=== PATIENT | male | born 1950 | race Caucasian/White ===

== ENCOUNTER → 2020-07-22 13:52 | Outpatient (BNVA) | payer MEDICARE, SELFPAY | PROVIDERS: PCP Internal Medicine; Visit Provider Urology | CPT/HCPCS: 99202 ==

== ENCOUNTER → 2020-08-27 08:59 | Outpatient (BNVA) | payer MEDICARE, SELFPAY | PROVIDERS: PCP Internal Medicine; Visit Provider Urology | DX: Z13.89 Encounter for screening for other disorder (principal) | CPT/HCPCS: 99212 ==

== ENCOUNTER → 2021-03-01 09:23 | Outpatient (BNVA) | payer MEDICARE, SELFPAY | PROVIDERS: PCP Internal Medicine; Visit Provider Urology | DX: N40.1 Benign prostatic hyperplasia with lower urinary tract symptoms (principal); N13.8 Other obstructive and reflux uropathy; C61 Malignant neoplasm of prostate | CPT/HCPCS: Q3014 ==

== ENCOUNTER → 2021-07-01 08:25 | Outpatient (BNVA) | payer MEDICARE, SELFPAY | PROVIDERS: PCP Internal Medicine; Visit Provider Urology | DX: N40.1 Benign prostatic hyperplasia with lower urinary tract symptoms (principal); N13.8 Other obstructive and reflux uropathy; C61 Malignant neoplasm of prostate | CPT/HCPCS: Q3014 ==

== ENCOUNTER → 2021-11-02 08:25 | Outpatient (BNVA) | payer MEDICARE, SELFPAY | PROVIDERS: PCP Internal Medicine; Visit Provider Urology | DX: C61 Malignant neoplasm of prostate (principal); N40.0 Benign prostatic hyperplasia without lower urinary tract symptoms; Z79.899 Other long term (current) drug therapy | CPT/HCPCS: Q3014 ==

== ENCOUNTER → 2022-02-01 10:41 | Outpatient (BNVA) | payer MEDICARE, SELFPAY | PROVIDERS: PCP Internal Medicine; Visit Provider Urology | DX: C61 Malignant neoplasm of prostate (principal); N40.1 Benign prostatic hyperplasia with lower urinary tract symptoms; N13.8 Other obstructive and reflux uropathy | CPT/HCPCS: Q3014 ==

== ENCOUNTER → 2022-08-01 13:13 | Outpatient (BNVA) | payer MEDICARE, SELFPAY | PROVIDERS: PCP Internal Medicine; Visit Provider Urology | DX: C61 Malignant neoplasm of prostate (principal); N40.1 Benign prostatic hyperplasia with lower urinary tract symptoms; N13.8 Other obstructive and reflux uropathy; I10 Essential (primary) hypertension; Z79.899 Other long term (current) drug therapy | CPT/HCPCS: Q3014 ==

== ENCOUNTER 2023-03-06 10:06 | Outpatient (AMB) | payer MEDICARE, SELFPAY ==
--- NOTE | 2023-03-06 10:08 | MHC.OFFVIS ---
Intake Intake Visit Reasons: 4m/PSA(set) Intake Note: Patient is Present for Follow Up PSA Urology Medication: Finasteride Antibiotic Allergies: None Blood Thinners: None [facility]acy: [facility] Allergies lisinopril Allergy (Intermediate, Verified 03/06/23 10:11) coughing HPI HPI Comments History of Present Illness Details Balaji is a pleasant male. He is a patient of Dr. Hadley. He is seen for the following urologic issues - lower urinary tract symptom - prostate cancer PSA staying stable Happy to continue on finasteride 5 mg daily Prior MRI from 2020 did not suggest high volume of disease Prostate cancer low volume, low grade initial diagnosis 2013 Prostate cancer initially diagnosed 2013 Initial prostate biopsy 06/18 core [place] 3 + 3 - 40%, 5% Imaging - 08/25 MRI 2 lesion PI-RADS 3 lesions - 0.6 and 0.8 cm neither reached clinically significant prostate cancer, intact boundary, size 80 g PSA - 06/27 12, 02/24 6.5, 06/28 6.9, 10/26 13.7, 01/26 8.4, 07/27 9.9, 02/26 8.7 14% Therapeutic plan - continue finasteride - repeat 4m PFSH Medical History HTN (hypertension) Hyperlipidemia Eczema Review of Systems Const Denies chills and Denies fever(s) Card Reports no additional complaints and Denies syncope Resp Denies cough GI Denies abdominal pain and Denies heartburn Reports as per HPI and Denies change in libido Neuro Denies syncope Psych Denies change in libido Endo Denies change in libido Physical Exam Const General: cooperative, healthy appearing, comfortable and no acute distress Orientation/consciousness: patient oriented x3 HEENT Face and sinus: Yes normal facial exam Mouth: moist mucous membranes Neck Neck: Yes normal visual inspection, Yes full ROM and Yes trachea midline Chest Chest palpation & inspection: normal inspection of the chest Resp Effort & Inspection: normal respiratory effort, able to speak in complete sentences and no respiratory distress GI Inspection: Yes normal to inspection Back/Spine/Pelvis Cervical Spine: normal cervical lordosis Thoracic/Lumbar Spine: thoracic and lumbar spine normal to inspection Skin General skin exam: no rashes or lesions noted Neuro General: patient oriented x3, gait normal, tone normal and moves all extremities Extrem General: Yes normal to inspection and Yes capillary refill normal Assessment & Plan Assessment & Plan (1) Prostate cancer: Code(s): C61 - Malignant neoplasm of prostate (2) BPH w urinary obs/LUTS: Code(s): N40.1 - Benign prostatic hyperplasia with lower urinary tract symptoms; N13.8 - Other obstructive and reflux uropathy Plan Four month follow-up Patient Instructions: Imaging studies, laboratory and physical exam results were discussed and reviewed in detail. No major barriers to patient understanding were identified. An opportunity to ask questions regarding the treatment plan was provided. All questions were answered. The patient expressed understanding and agreement with the above treatment plan. The patient is aware they should contact our office by phone for worsening of their current condition or the appearance of new urologic symptoms. Compliance is encouraged with any medications and followup testing that is ordered. It is a privilege to participate in the urologic care of your patient. If you have any questions or concerns regarding treatment for the above conditions, or other urologic issues, please do not hesitate to contact me. The office telephone contact is [phone]. This note is constructed using voice recognition software. While every effort has been made to ensure accuracy manager applied errors may have been included. Yours sincerely, Dr Angelo Cuellar MD, [facility] - Urology Providers of Expert, Compassionate Care for the Genitourinary System Coding Level of Care Code Est Pt Level 3 (06960) Diagnoses Prostate cancer C61 BPH w urinary obs/LUTS N40.1; N13.8
== END 2023-03-06 11:00 | disposition home or self-care (01) ==
PROVIDERS: Visit Provider Urology
DX: C61 Malignant neoplasm of prostate (principal); N40.1 Benign prostatic hyperplasia with lower urinary tract symptoms; N13.8 Other obstructive and reflux uropathy
CPT/HCPCS: 99213

== ENCOUNTER → 2023-03-06 10:06 | Outpatient (BNVA) | payer MEDICARE, SELFPAY | PROVIDERS: Visit Provider Urology | DX: N40.1 Benign prostatic hyperplasia with lower urinary tract symptoms (principal); N13.8 Other obstructive and reflux uropathy; C61 Malignant neoplasm of prostate | CPT/HCPCS: 99212 ==

== ENCOUNTER 2023-07-04 09:20 | Outpatient (AMB) | payer MEDICARE, SELFPAY ==
--- NOTE | 2023-07-04 09:22 | A.OFFVIS_ITS ---
Intake Intake Visit Reasons: 4M PSA(set)Confirmed Intake Note: Patient is Present for Telephone Follow Up PSA Urology Med: Finasteride, Antibiotic Allergy:None Blood Thinner:None Allergies lisinopril Allergy (Intermediate, Verified 07/04/23 09:22) coughing Medication List - Last Reconciled 07/04/23 by Angelo Cuellar MD atorvastatin 10 mg PO DAILY finasteride 5 mg PO DAILY 90 days losartan 100 mg PO DAILY HPI HPI Comments History of Present Illness Details Balaji is a pleasant male. He is a patient of Dr. Hadley. He is seen for the following urologic issues - lower urinary tract symptom - prostate cancer Telemedicine Evaluation 15 min Consultation Doximity Lalita Video attempted PSA slight fall 6.4 Happy to continue on finasteride 5 mg daily Prior MRI from 2020 did not suggest high volume of disease Prostate cancer low volume, low grade initial diagnosis 2013 Prostate cancer initially diagnosed 2013 Initial prostate biopsy 06/18 core [place] 3 + 3 - 40%, 5% Imaging - 08/25 MRI 2 lesion PI-RADS 3 lesions - 0.6 and 0.8 cm neither reached clinically significant prostate cancer, intact boundary, size 80 g PSA - 06/27 12, 02/24 6.5, 06/28 6.9, 10/26 13. 7, 01/26 8.4, 07/27 9.9, 02/26 8.7 14%, 06/29 6.4 Therapeutic plan - continue finasteride - repeat 4m REPLACED BY [facility] Medical History HTN (hypertension) Hyperlipidemia Eczema Review of Systems Const All systems reviewed & are unremarkable except as noted in HPI and below Reports no additional complaints Resp Reports no additional complaints GI Reports no additional complaints Reports as per HPI Musc Reports no additional complaints Physical Exam Telemedicine evaluation Appropriate responses Regular breathing rate and rhythm HEENT Head: Yes normal to inspection Ears: hearing grossly normal bilaterally Eyes General: appearance normal, both eyes and all related structures Neck Neck: Yes normal visual inspection Chest Chest palpation & inspection: normal inspection of the chest Resp Effort & Inspection: normal respiratory effort and able to speak in complete sentences Assessment & Plan Assessment & Plan (1) Prostate cancer: Code(s): C61 - Malignant neoplasm of prostate (2) BPH w urinary obs/LUTS: Code(s): N40.1 - Benign prostatic hyperplasia with lower urinary tract symptoms; N13.8 - Other obstructive and reflux uropathy Plan Four month follow-up PSA Orders: Orders Prostate Specific Antigen 06/19/23 C61 - Malignant neoplasm of prostate PSA,Total (Free>4and<10) 4 Months C61 - Malignant neoplasm of prostate Medications: Refilled finasteride 5 mg PO DAILY 90 days 90 tabs 1RF C61 - Malignant neoplasm of prostate, N40.1 - Benign prostatic hyperplasia with lower urinary tract symptoms Patient Instructions: Imaging studies, laboratory and physical exam results were discussed and reviewed in detail. No major barriers to patient understanding were identified. An opportunity to ask questions regarding the treatment plan was provided. All questions were answered. The patient expressed understanding and agreement with the above treatment plan. The patient is aware they should contact our office by phone for worsening of their current condition or the appearance of new urologic symptoms. Compliance is encouraged with any medications and followup testing that is ordered. It is a privilege to participate in the urologic care of your patient. If you have any questions or concerns regarding treatment for the above conditions, or other urologic issues, please do not hesitate to contact me. The office telephone contact is [phone]. This note is constructed using voice recognition software. While every effort has been made to ensure accuracy search optimization analyst errors may have been included. Yours sincerely, Dr Angelo Cuellar MD, [facility] - Urology Providers of Expert, Compassionate Care for the Genitourinary System Telehealth Telehealth Location of provider rendering services: practice address Location of patient: address on file Patient Identification confirmed using: Name, : Yes Telehealth method: video Patient verbally consented to treatment: Yes Patient verbally consented to billing insurance company: Yes Patient informed of any privacy concerns related to visit: Yes Coding Level of Care Code Tele Est Pt Level 3 (18301) Diagnoses Prostate cancer C61 BPH w urinary obs/LUTS N40.1; N13.8
== END 2023-07-04 09:56 | disposition home or self-care (01) ==
LOC: HO.HUSH 09:21
PROVIDERS: PCP Internal Medicine; Visit Provider Urology
DX: C61 Malignant neoplasm of prostate (principal); N40.1 Benign prostatic hyperplasia with lower urinary tract symptoms; N13.8 Other obstructive and reflux uropathy
CPT/HCPCS: 99213

== ENCOUNTER → 2023-07-04 09:20 | Outpatient (BNVA) | payer MEDICARE, SELFPAY | PROVIDERS: PCP Internal Medicine; Visit Provider Urology ==

== ENCOUNTER 2023-11-02 09:08 | Outpatient (AMB) | payer MEDICARE, SELFPAY ==
--- NOTE | 2023-11-02 09:03 | MHC.OFFVIS ---
Intake Visit Reasons: 4m/PSA(SET) Intake Note: Patient is present for 4 month and PSA Urology Medication:finasteride Antibiotic Allergy:none Blood Thinner:none Carriage Feeder Required: No Allergies lisinopril Allergy (Intermediate, Verified 11/02/23 09:05) coughing HPI Comments Details: Balaji is a pleasant male. He is a patient of Dr. Hadley. He is seen for the following urologic issues - lower urinary tract symptom - prostate cancer Telemedicine Evaluation 15 min Consultation Doximt3n Magazin Lalita Video attempted PSA jumped to 10.3 Plan for MRI imaging with directed biopsy He would like to try coming off finasteride and using his other NAD supplements Prostate cancer low volume, low grade initial diagnosis 2013 Prostate cancer initially diagnosed 2013 Initial prostate biopsy 06/18 core [place] 3 + 3 - 40%, 5% Imaging - 08/25 MRI 2 lesion PI-RADS 3 lesions - 0.6 and 0.8 cm neither reached clinically significant prostate cancer, intact boundary, size 80 g PSA - 06/27 12, 02/24 6.5, 06/28 6.9, 10/26 13.7, 01/26 8.4, 07/27 9.9, 02/26 8.7 14%, 06/29 6.4 Therapeutic plan - repeat prostate MRI [facility] Medical History HTN (hypertension) Hyperlipidemia Eczema Review of Systems Const All systems reviewed & are unremarkable except as noted in HPI and below Reports no additional complaints Resp Reports no additional complaints GI Reports no additional complaints Reports as per HPI Musc Reports no additional complaints Physical Exam Telemedicine evaluation Appropriate responses Regular breathing rate and rhythm HEENT Head: Yes normal to inspection Ears: hearing grossly normal bilaterally Eyes General: appearance normal, both eyes and all related structures Neck Neck: Yes normal visual inspection Chest Chest palpation & inspection: normal inspection of the chest Resp Effort & Inspection: normal respiratory effort and able to speak in complete sentences Telehealth Telehealth Telehealth Platform: Nightpro Location of provider rendering services: practice address Location of patient: address on file Patient Identification confirmed using: Name, : Yes Telehealth method: video Patient verbally consented to treatment: Yes Patient verbally consented to billing insurance company: Yes Patient informed of any privacy concerns related to visit: Yes Minutes spent on Phone/Video with Pt.: 15 Assessment & Plan Assessment & Plan (1) BPH w urinary obs/LUTS: Code(s): N40.1 - Benign prostatic hyperplasia with lower urinary tract symptoms; N13.8 - Other obstructive and reflux uropathy Category: Medical (2) Prostate cancer: Code(s): C61 - Malignant neoplasm of prostate Category: Medical Plan Repeat prostate MRI 2 month follow-up Orders: Orders MR pelvis wo/w con Today C61 - Malignant neoplasm of prostate Patient Instructions: Imaging studies, laboratory and physical exam results were discussed and reviewed in detail. No major barriers to patient understanding were identified. An opportunity to ask questions regarding the treatment plan was provided. All questions were answered. The patient expressed understanding and agreement with the above treatment plan. The patient is aware they should contact our office by phone for worsening of their current condition or the appearance of new urologic symptoms. Compliance is encouraged with any medications and followup testing that is ordered. It is a privilege to participate in the urologic care of your patient. If you have any questions or concerns regarding treatment for the above conditions, or other urologic issues, please do not hesitate to contact me. The office telephone contact is [phone]. This note is constructed using voice recognition software. While every effort has been made to ensure accuracy drug discovery informatics specialist errors may have been included. Yours sincerely, Dr Angelo Cuellar MD, [facility] - Urology Providers of Expert, Compassionate Care for the Genitourinary System Coding Level of Care Code Tele Est Pt Level 4 (62593) Diagnoses BPH w urinary obs/LUTS N40.1; N13.8 Prostate cancer C61
== END 2023-11-02 09:56 | disposition home or self-care (01) ==
LOC: HO.HUSH 09:08
PROVIDERS: PCP Internal Medicine; Visit Provider Urology
DX: N40.1 Benign prostatic hyperplasia with lower urinary tract symptoms (principal); N13.8 Other obstructive and reflux uropathy; C61 Malignant neoplasm of prostate
CPT/HCPCS: 99213

== ENCOUNTER → 2023-11-02 09:08 | Outpatient (BNVA) | payer MEDICARE, SELFPAY | PROVIDERS: PCP Internal Medicine; Visit Provider Urology ==

== ENCOUNTER 2024-01-01 09:53 | Outpatient (AMB) | payer MEDICARE, SELFPAY ==
--- NOTE | 2024-01-01 09:50 | MHC.OFFVIS ---
Intake Visit Reasons: 2M Follow Up-MRI(SET) Intake Note: Patient is present for 2m f/u(MRI) Urology Medication:finasteride Antibiotic Allergy:none Blood Thinner:none Dialysis Clinical Manager Required: No Allergies lisinopril Allergy (Intermediate, Verified 01/01/24 09:51) coughing Medication List - Last Reconciled 01/01/24 by Angelo Cuellar MD atorvastatin 10 mg PO DAILY finasteride 5 mg PO DAILY 90 days losartan 100 mg PO DAILY HPI Comments Details: Balaji is a pleasant male. He is a patient of Dr. Hadley. He is seen for the following urologic issues - lower urinary tract symptom - prostate cancer Telemedicine Evaluation 15 min Consultation DoximAisleFinder Lalita Video attempted MRI imaging low volume with low risk disease He would like to try coming off finasteride and using his other NAD supplements Prostate cancer low volume, low grade initial diagnosis 2013 Prostate cancer initially diagnosed 2013 Initial prostate biopsy 06/18 core [place] 3 + 3 - 40%, 5% Imaging - 08/25 MRI 2 lesion PI-RADS 3 lesions - 0.6 and 0.8 cm neither reached clinically significant prostate cancer, intact boundary, size 80 g - 10/28 MRI PI-RADS 4 - 9mm right anterior lesion PSA - 06/27 12, 02/24 6.5, 06/28 6.9, 10/26 13.7, 01/26 8.4, 07/27 9.9, 02/26 8.7 14%, 06/30 6.4, 10/28 10.3 Therapeutic plan - repeat PSA in 4m [facility] Medical History HTN (hypertension) Hyperlipidemia Eczema Review of Systems Const All systems reviewed & are unremarkable except as noted in HPI and below Reports no additional complaints Resp Reports no additional complaints GI Reports no additional complaints Reports as per HPI Musc Reports no additional complaints Physical Exam Telemedicine evaluation Appropriate responses Regular breathing rate and rhythm HEENT Head: Yes normal to inspection Ears: hearing grossly normal bilaterally Eyes General: appearance normal, both eyes and all related structures Neck Neck: Yes normal visual inspection Chest Chest palpation & inspection: normal inspection of the chest Resp Effort & Inspection: normal respiratory effort and able to speak in complete sentences Telehealth Telehealth Telehealth Platform: Jingdong Location of provider rendering services: practice address Location of patient: address on file Patient Identification confirmed using: Name, : Yes Telehealth method: video Patient verbally consented to treatment: Yes Patient verbally consented to billing insurance company: Yes Patient informed of any privacy concerns related to visit: Yes Minutes spent on Phone/Video with Pt.: 15 Assessment & Plan Assessment & Plan (1) Prostate cancer: Code(s): C61 - Malignant neoplasm of prostate Category: Medical (2) BPH w urinary obs/LUTS: Code(s): N40.1 - Benign prostatic hyperplasia with lower urinary tract symptoms; N13.8 - Other obstructive and reflux uropathy Category: Medical Plan 4m f/u PSA Orders: Orders PSA,Total (Free>4and<10) 4 Months C61 - Malignant neoplasm of prostate Patient Instructions: Imaging studies, laboratory and physical exam results were discussed and reviewed in detail. No major barriers to patient understanding were identified. An opportunity to ask questions regarding the treatment plan was provided. All questions were answered. The patient expressed understanding and agreement with the above treatment plan. The patient is aware they should contact our office by phone for worsening of their current condition or the appearance of new urologic symptoms. Compliance is encouraged with any medications and followup testing that is ordered. It is a privilege to participate in the urologic care of your patient. If you have any questions or concerns regarding treatment for the above conditions, or other urologic issues, please do not hesitate to contact me. The office telephone contact is [phone]. This note is constructed using voice recognition software. While every effort has been made to ensure accuracy regional flatbed truck driver errors may have been included. Yours sincerely, Dr Angelo Cuellar MD, [facility] - Urology Providers of Expert, Compassionate Care for the Genitourinary System Coding Level of Care Code Tele Est Pt Level 3 (21522) Complex EM visit Add On G2211 Diagnoses Prostate cancer C61 BPH w urinary obs/LUTS N40.1; N13.8
== END 2024-01-01 12:15 | disposition home or self-care (01) ==
LOC: HO.HUSH 09:53
PROVIDERS: PCP Internal Medicine; Visit Provider Urology
DX: C61 Malignant neoplasm of prostate (principal); N40.1 Benign prostatic hyperplasia with lower urinary tract symptoms; N13.8 Other obstructive and reflux uropathy
CPT/HCPCS: 99213; G2211

== ENCOUNTER → 2024-01-01 09:53 | Outpatient (BNVA) | payer MEDICARE, SELFPAY | PROVIDERS: PCP Internal Medicine; Visit Provider Urology ==

== ENCOUNTER 2024-04-24 11:20 | Outpatient (AMB) | payer MEDICARE, SELFPAY ==
--- NOTE | 2024-04-24 11:26 | A.OFFVIS_ITS ---
Intake Visit Reasons: 4m/PSA Intake Note: Patient is present for 4M/PSA Urology Medication:NONE Antibiotic Allergy:NONE Blood Thinner:NONE Buckle Strap Drum Operator Required: No Allergies lisinopril Allergy (Intermediate, Verified 04/24/24 11:27) coughing HPI Comments Details: Balaji is a pleasant male. He is a patient of Dr. Hadley. He is seen for the following urologic issues - lower urinary tract symptom - prostate cancer Four month follow-up Prior MRI imaging low volume with low risk disease He came off finasteride PSA continues to rise He would like to go back on the supplement therapy previously used I did recommend repeat biopsy At this point he will review PSA and three-month Prostate cancer low volume, low grade initial diagnosis 2013 Prostate cancer initially diagnosed 2013 Initial prostate biopsy 06/18 core [place] 3 + 3 - 40%, 5% Imaging - 08/25 MRI 2 lesion PI-RADS 3 lesions - 0.6 and 0.8 cm neither reached clinically significant prostate cancer, intact boundary, size 80 g - 10/28 MRI PI-RADS 4 - 9mm right anterior lesion PSA - 06/27 12, 02/24 6.5, 06/28 6.9, 10/26 13.7, 01/26 8.4, 07/27 9.9, 02/26 8.7 14%, 06/30 6.4, 10/28 10.3 Therapeutic plan - repeat PSA in 4m [facility] Medical History HTN (hypertension) Hyperlipidemia Eczema Review of Systems Const Denies chills and Denies fever(s) Card Reports no additional complaints and Denies syncope Resp Denies cough GI Denies abdominal pain and Denies heartburn Reports as per HPI and Denies change in libido Neuro Denies syncope Psych Denies change in libido Endo Denies change in libido Physical Exam Const General: cooperative, healthy appearing, comfortable and no acute distress Orientation/consciousness: patient oriented x3 HEENT Face and sinus: Yes normal facial exam Mouth: moist mucous membranes Neck Neck: Yes normal visual inspection, Yes full ROM and Yes trachea midline Chest Chest palpation & inspection: normal inspection of the chest Resp Effort & Inspection: normal respiratory effort, able to speak in complete sentences and no respiratory distress GI Inspection: Yes normal to inspection Back/Spine/Pelvis Cervical Spine: normal cervical lordosis Thoracic/Lumbar Spine: thoracic and lumbar spine normal to inspection Skin General skin exam: no rashes or lesions noted Neuro General: patient oriented x3, gait normal, tone normal and moves all extremities Extrem General: Yes normal to inspection and Yes capillary refill normal Assessment & Plan Assessment & Plan (1) Prostate cancer: Code(s): C61 - Malignant neoplasm of prostate Category: Medical (2) BPH w urinary obs/LUTS: Code(s): N40.1 - Benign prostatic hyperplasia with lower urinary tract symptoms; N13.8 - Other obstructive and reflux uropathy Category: Medical Plan Three-month follow-up PSA Orders: Orders AMB Urinalysis Automated Today Z13.9 - Encounter for screening, unspecified PSA,Total (Free>4and<10) 3 Months C61 - Malignant neoplasm of prostate Patient Instructions: Imaging studies, laboratory and physical exam results were discussed and reviewed in detail. No major barriers to patient understanding were identified. An opportunity to ask questions regarding the treatment plan was provided. All questions were answered. The patient expressed understanding and agreement with the above treatment plan. The patient is aware they should contact our office by phone for worsening of their current condition or the appearance of new urologic symptoms. Compliance is encouraged with any medications and followup testing that is ordered. It is a privilege to participate in the urologic care of your patient. If you have any questions or concerns regarding treatment for the above conditions, or other urologic issues, please do not hesitate to contact me. The office telephone contact is [phone]. This note is constructed using voice recognition software. While every effort has been made to ensure accuracy lubricator granulator errors may have been included. Yours sincerely, Dr Angelo Cuellar MD, [facility] - Urology Providers of Expert, Compassionate Care for the Genitourinary System Coding Level of Care Code New Pt Level 4 (71931) Diagnoses Prostate cancer C61 BPH w urinary obs/LUTS N40.1; N13.8
== END 2024-04-24 11:50 | disposition home or self-care (01) ==
PROVIDERS: PCP Internal Medicine; Visit Provider Urology
DX: C61 Malignant neoplasm of prostate (principal); N40.1 Benign prostatic hyperplasia with lower urinary tract symptoms; N13.8 Other obstructive and reflux uropathy; Z13.9 Encounter for screening, unspecified
CPT/HCPCS: 99214

== ENCOUNTER → 2024-04-24 11:20 | Outpatient (BNVA) | payer MEDICARE, SELFPAY | PROVIDERS: PCP Internal Medicine; Visit Provider Urology | DX: C61 Malignant neoplasm of prostate (principal); N40.1 Benign prostatic hyperplasia with lower urinary tract symptoms; N13.8 Other obstructive and reflux uropathy | CPT/HCPCS: 81003; 99212 ==

== ENCOUNTER 2024-08-15 10:08 | Outpatient (AMB) | payer MEDICARE, SELFPAY ==
--- NOTE | 2024-08-15 10:09 | A.OFFVIS_ITS ---
Intake Visit Reasons: Followup/PSA(PSA?) Intake Note: Patient is present for PSA F/U Urology Medication:NONE Antibiotic Allergy:NONE Blood Thinner:NONE Blood Typer Required: No Allergies lisinopril Allergy (Intermediate, Verified 08/15/24 10:10) coughing HPI Comments Details: Balaji is a pleasant male. He is a patient of Dr. Hadley. He is seen for the following urologic issues - lower urinary tract symptom - prostate cancer Telemedicine Evaluation 15 min Consultation Doximity Lalita Video Four month interval surveillance PSA 08/29 15 Previous recommendation for repeat biopsy using MRI He understands the risks and benefits of delayed detection Prostate cancer low volume, low grade initial diagnosis 2013 Prostate cancer initially diagnosed 2013 Initial prostate biopsy 06/18 core [place] 3 + 3 - 40%, 5% Imaging - 08/25 MRI 2 lesion PI-RADS 3 lesions - 0.6 and 0.8 cm neither reached clinically significant prostate cancer, intact boundary, size 80 g - 10/28 MRI PI-RADS 4 - 9mm right anterior lesion - volume 100gm PSA - 06/27 12, 02/24 6.5, 06/28 6.9, 10/26 13.7, 01/26 8.4, 07/27 9.9, 02/26 8.7 14%, 06/30 6.4, 10/28 10.3, 04/29 24.5, 08/29 14.5 Therapeutic plan - repeat PSA in 4m [facility] Medical History HTN (hypertension) Hyperlipidemia Eczema Review of Systems Const All systems reviewed & are unremarkable except as noted in HPI and below Reports no additional complaints Resp Reports no additional complaints GI Reports no additional complaints Reports as per HPI Musc Reports no additional complaints Physical Exam Telemedicine evaluation Appropriate responses Regular breathing rate and rhythm HEENT Head: Yes normal to inspection Ears: hearing grossly normal bilaterally Eyes General: appearance normal, both eyes and all related structures Neck Neck: Yes normal visual inspection Chest Chest palpation & inspection: normal inspection of the chest Resp Effort & Inspection: normal respiratory effort and able to speak in complete sentences Telehealth Telehealth Telehealth Platform: [email or web address] Location of provider rendering services: practice address Location of patient: address on file Patient Identification confirmed using: Name, : Yes Telehealth method: video Patient verbally consented to treatment: Yes Patient verbally consented to billing insurance company: Yes Patient informed of any privacy concerns related to visit: Yes Minutes spent on Phone/Video with Pt.: 15 Assessment & Plan Assessment & Plan (1) Prostate cancer: Code(s): C61 - Malignant neoplasm of prostate Category: Medical (2) BPH w urinary obs/LUTS: Code(s): N40.1 - Benign prostatic hyperplasia with lower urinary tract symptoms; N13.8 - Other obstructive and reflux uropathy Category: Medical Plan Sharp fallen PSA Four month follow-up office PSA Orders: Orders PSA,Total (Free>4and<10) 4 Months C61 - Malignant neoplasm of prostate Patient Instructions: This note is constructed using voice recognition software. While every effort has been made to ensure accuracy health promotion specialist errors may have been included. Imaging studies, laboratory and physical exam results were discussed and reviewed in detail. No major barriers to patient understanding were identified. An opportunity to ask questions regarding the treatment plan was provided. All questions were answered. The patient expressed understanding and agreement with the above treatment plan. The patient is aware they should contact our office by phone for worsening of their current condition or the appearance of new urologic symptoms. Compliance is encouraged with any medications and followup testing that is ordered. It is a privilege to participate in the urologic care of your patient. If you have any questions or concerns regarding treatment for the above conditions, or other urologic issues, please do not hesitate to contact me. The office telephone contact is [phone]. Sincerely, Dr Angelo Cuellar MD, [facility] - Urology Compassionate Specialist Care for the Genitourinary System Coding Level of Care Code Tele Est Pt Level 3 (01228) Complex EM visit Add On G2211 Diagnoses Prostate cancer C61 BPH w urinary obs/LUTS N40.1; N13.8
--- OUTSIDE RECORDS SUMMARY | 2024-08-15 10:48 | XMS_ITS | Encounter Summary ---
Author Organization [facility] Address [address] [place] [address] Care Team Providers Care Hypo Dipper Name Role Phone Dylan Hadley MD Primary Care Provider [phone] Reason for Visit * Reason Onset Date Comments Special procedure 07/23/2024 Encounter Details Date Type Department Care Team (Late st Contact Info) Description 07/23/2024 Telephone Gastroenterology - [place] 175 [facility] 175 [facility] [address] [place] [address] Zeferino Aldana MD 229 [facility] [address] [place] [address] Special procedure Social History Tobacco Use Types Packs/Day Years Used Date Smoking Tobacco: Never Assessed Sex and Gender Information Value Date Recorded Sex Assigned at Not on file Legal Sex Male 11:03 AM EST Gender Identity Not on file Sexual Orientation Not on file documented as of this encounter Progress Notes * Richy Rinaldi - 07/28/2024 8:57 AM EDT Blood thinners: NO Diabetic meds? NO Weight loss meds? NO First Colonoscopy: NO - 10YRS + AGO Personal hx of polyps? NO Family hx of polyps/crc? NO/NO BMI: 32.0 Spoke w pt scheduled colon 5.28.25 at 930 am. Instructions mailed. * Alfreda Farmer - 07/25/2024 4:08 PM EDT Pt returning your call * Gladys Villeda - 07/23/2024 12:39 PM EDT 1st attempt to schedule patient left message to call back * Shelly Bravo MA - 07/23/2024 11:21 AM EDT MEDS AND ALLERGIES UPDATED * Celena Gill MA - 07/23/2024 10:59 AM EDT Records received from [facility] to schedule patient for a colonoscopy, last done in [address] Pittman. Notes given to Marixa to update meds and allergies. documented in this encounter Plan of Treatment Upcoming Encounters Date Type Department Care Team (Late st Contact Info) Description 10/01/2024 10:30 AM EDT Appointment [facility] [address] [place] [phone] Zeferino Aldana MD [address] [id number] documented as of this encounter Visit Diagnoses Not on filedocumented in this encounter Historical Medications * This list may reflect changes made after this encounter. omega-3 fatty acids 1,000 mg capsule Take by mouth. omega-3 acid ethyl esters (LOVAZA) 1 gram capsule Take 1 capsule (1 g total) by mouth 2 (two) times a day. phytonadione, vit K1, (vitamin k) 100 mcg tablet Take 1 tablet (100 mcg total) by mouth 1 (one) time each day. ascorbic acid (Vitamin C) 125 mg chewable tablet Chew 1 tablet (125 mg total). cholecalciferol (Vitamin D3) 5,000 Units tablet Take 1 tablet (5,000 Units total) by mouth 1 (one) time each day. atorvastatin (LIPITOR) 10 mg tablet Take 1 tablet (10 mg total) by mouth 1 (one) time each day. 05/17/2024 losartan (COZAAR) 100 mg tablet 07/19/2024 added in this encounter Care Teams Hypo Dipper Relationship Specialty Start Date End Date Dylan Hadley MD [address] [place] [address] PCP - General Internal Medicine 07/23/24 documented as of this encounter
--- OUTSIDE RECORDS SUMMARY | 2024-08-15 10:48 | XMS_ITS | Clinical Summary ---
Author Organization [address] [place] [address] [address] [place] [address] Phone Care Team Providers Care Lockstitch Shoulder Joiner Name Role Phone Dylan Hadley MD Primary Care Provider [phone] Allergies Active Allergy Reactions Criticality Noted Date Comments Lisinopril Cough 07/23/2024 Medications losartan (COZAAR) 100 mg tablet 07/19/2024 Active atorvastatin (LIPITOR) 10 mg tablet Take 1 tablet (10 mg total) by mouth 1 (one) time each day. 05/17/2024 Active cholecalciferol (Vitamin D3) 5,000 Units tablet Take 1 tablet (5,000 Units total) by mouth 1 (one) time each day. Active ascorbic acid (Vitamin C) 125 mg chewable tablet Chew 1 tablet (125 mg total). Active phytonadione, vit K1, (vitamin k) 100 mcg tablet Take 1 tablet (100 mcg total) by mouth 1 (one) time each day. Active omega-3 acid ethyl esters (LOVAZA) 1 gram capsule Take 1 capsule (1 g total) by mouth 2 (two) times a day. Active omega-3 fatty acids 1,000 mg capsule Take by mouth. Active Encounters Date Type Department Care Team Description 07/23/2024 Telephone Gastroenterology - [place] [address] [place] [id number] Zeferino Aldana MD Special procedure from Last 3 Months Social History Tobacco Use Types Packs/Day Years Used Date Smoking Tobacco: Never Assessed Sex and Gender Information Value Date Recorded Sex Assigned at Not on file Legal Sex Male 11:03 AM EST Gender Identity Not on file Sexual Orientation Not on file Plan of Treatment Upcoming Encounters Date Type Department Care Team ([facility] Contact Info) Description 10/01/2024 10:30 AM EDT Appointment [facility] Endoscopy [address] [place] [address] Zeferino Aldana MD 229 [facility] [address] [place] [address] Health Maintenance Due Date Last Done Comments DTaP,Tdap,and Td Vaccines (1 - Tdap) 08/05/1971 Pneumococcal Vaccine: 50+ Ye ars (1 of 1 - PCV) 2002 Zoster Vaccines (1 of 2) 2002 COVID-19 Vaccine (1 - 2023-2 5 season) 2024 Abdominal Aortic Aneurysm (A AA) Screen 07/23/2024 Cholesterol Screening (Lipid Panel) 07/23/2024 Colorectal Cancer Screening: Colonoscopy 07/23/2024 Depression Screening 07/23/2024 Falls Risk Assessment 07/23/2024 Hepatitis C Screening 07/23/2024 Medicare Annual Wellness Visit 07/23/2024 Social Influencers of Health Screening 07/23/2024 Influenza Vaccine (Season Ended) 2025 RSV Immunization Adult Patie nts (1 - 1-dose 75+ series) 08/05/2027 HIB Vaccines Aged Out No longer eligi ble based on patient's age to complete this topic HPV Vaccines Aged Out No longer eligi ble based on patient's age to complete this topic Hepatitis A Vaccines Aged Out No long er eligible based on patient's age to complete this topic Hepatitis B Vaccines Aged Out No long er eligible based on patient's age to complete this topic IPV Vaccines Aged Out No longer eligi ble based on patient's age to complete this topic MMR Vaccines Aged Out No longer eligi ble based on patient's age to complete this topic Meningococcal ACWY Vaccine Aged Out N o longer eligible based on patient's age to complete this topic Meningococcal B Vaccine Aged Out No l onger eligible based on patient's age to complete this topic RSV Immunization Patients Un deshawn 20 months Aged Out No longer eligible b ased on patient's age to complete this topic Varicella Vaccines Aged Out No longer eligible based on patient's age to complete this topic Insurance [employer] Care Teams Lockstitch Shoulder Joiner Relationship Specialty Start Date End Date Dylan Hadley MD [address] [place] [id number] PCP - General Internal Medicine 07/23/24
== END 2024-08-15 11:00 | disposition home or self-care (01) ==
LOC: HO.HUSH 10:08
PROVIDERS: PCP Internal Medicine; Visit Provider Urology
DX: C61 Malignant neoplasm of prostate (principal); N40.1 Benign prostatic hyperplasia with lower urinary tract symptoms; N13.8 Other obstructive and reflux uropathy
CPT/HCPCS: 99213; G2211

== ENCOUNTER → 2024-08-15 10:08 | Outpatient (BNVA) | payer MEDICARE, SELFPAY | PROVIDERS: PCP Internal Medicine; Visit Provider Urology ==